=== PATIENT | female | born 1940 | race African-American/Black ===

== ENCOUNTER → 2018-02-28 12:13 | Outpatient (CLI) | payer MEDICARE, SELFPAY ==
--- NOTE | 2018-02-28 12:16 | XR_ITS ---
XR ankle wt bearing RT min 3V HISTORY: ITS.REASON: pain ORDERING PHYSICIAN: Vesna Echols DPM PATIENT AGE: 77 years Comparison: 02/25/2012 FINDINGS: No fracture or dislocation. No lytic or blastic change. There is normal mineralization.. The joint spaces are well-preserved. No significant degenerative/arthritic changes. No erosive changes evident. IMPRESSION: Negative ankle, no acute finding
--- NOTE | 2018-02-28 12:16 | XR_ITS ---
XR foot wt bearing LT 3V HISTORY: ITS.REASON: pain ORDERING PHYSICIAN: Vesna Echols DPM PATIENT AGE: 77 years COMPARISON: 02/25/2012 FINDINGS: There is moderate pes planus. Bony hypertrophic changes are present posteriorly in the mid foot. Osteoarthritic changes with subarticular cystic change is present at the navicular cuneiform joint with bony hypertrophic changes posteriorly. Osteoarthritic changes are also present at the second, third, fourth and fifth metatarsal tarsal joints. The pes planus and osteoarthritic changes have worsened compared to the previous exam. No fracture or dislocation. 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
--- NOTE | 2018-02-28 12:16 | XR_ITS ---
XR ankle wt bearing LT min 3V HISTORY: ITS.REASON: pain ORDERING PHYSICIAN: Vesna Echols DPM PATIENT AGE: 77 years Comparison: None FINDINGS: No fracture or dislocation. No lytic or blastic change. There is normal mineralization.. The joint spaces are well-preserved. No significant degenerative/arthritic changes. No erosive changes evident. IMPRESSION: Negative ankle, no acute finding
--- NOTE | 2018-02-28 12:16 | XR_ITS ---
XR foot wt bearing RT 3V HISTORY: ITS.REASON: pain ORDERING PHYSICIAN: Vesna Echols DPM PATIENT AGE: 77 years COMPARISON: 08/01/2015 FINDINGS: There is severe hallux valgus with first metatarsophalangeal angle of 51 degrees similar to the previous exam. There is 1 cm lateral displacement of the proximal phalanx of the great toe also similar when compared to the previous exam. There are osteoarthritic changes of the first MTP joint Pes planus is present as well not significant change. No fracture or dislocation. No lytic or blastic change. There is a defect present at the distal aspect of the fifth metatarsal laterally nonspecific and unchanged. Osteoarthritic changes are present at the talocuboid joint. IMPRESSION: Severe hallux valgus with lateral subluxation of the proximal phalanx of the great toe along with pes planus overall not significant changed
== END ==
PROVIDERS: Visit Provider Podiatrist
DX: M19.071 Primary osteoarthritis, right ankle and foot (principal); M19.072 Primary osteoarthritis, left ankle and foot; M79.671 Pain in right foot; M79.672 Pain in left foot
CPT/HCPCS: 73610; 73630

== ENCOUNTER → 2018-04-22 12:53 | Outpatient (POV) | payer MEDICARE, SELFPAY | PROVIDERS: Family Provider Family Medicine; PCP Family Medicine; Visit Provider Podiatrist | DX: Z00.00 Encounter for general adult medical examination without abnormal findings (principal) ==

== ENCOUNTER → 2018-06-28 10:41 | Outpatient (CLI) | payer MEDICARE, SELFPAY ==
--- NOTE | 2018-06-28 10:43 | MM_ITS ---
MM Dig screening mamm BI w/CAD CAD Screening COMPARISON: Digital mammograms with CAD 05/14/2017 and 05/05/2016 INDICATION: There is no personal or family history of breast cancer. TECHNIQUE: Standard CC and MLO images were obtained. R2 CAD reviewed. FINDINGS: Prominent diffuse heterogenic fibroglandular densities are seen throughout both breast lessening the sensitivity of mammography. There is a biopsy clip left breast, biopsy was benign. Diffuse scattered microcalcifications and macrocalcifications are seen throughout both breast as noted previously. There is no suspicious lesion and there are no suspicious microcalcifications. There are small nodes seen in both axilla. IMPRESSION: Stable dense parenchymal pattern with no suspicious lesion seen BI-RADS Category: 2 Benign Finding(s) RECOMMENDED FOLLOW-UP: 1YR - 1 YEAR FOLLOW-UP (A letter has been sent to the patient regarding results of the study.)
== END ==
PROVIDERS: Family Provider Family Medicine; PCP Family Medicine; Visit Provider Family Medicine
DX: Z12.31 Encounter for screening mammogram for malignant neoplasm of breast (principal)
CPT/HCPCS: 77067

== ENCOUNTER → 2019-08-17 12:41 | Outpatient (CLI) | payer MEDICARE, SELFPAY ==
--- NOTE | 2019-08-17 12:45 | MM_ITS ---
PROCEDURE: MM DIG SCREENING MAMM BI W/CAD CLINICAL INDICATION: VISIT FOR SCREENING MAMMOGRAM There is no personal or family history of breast cancer. There has been a previous biopsy left breast for benign disease. COMPARISON: [facility] DIG MAMM-SCREEN ROBBIE from 05/05/2016 [facility] DIG MAMM-SCREEN ROBBIE W/CAD from 05/14/2017 [facility] MM Dig screening mamm BI w/CAD from 06/28/2018 TECHNIQUE: Standard CC and MLO images were obtained. R2 CAD reviewed. FINDINGS: Diffuse heterogenic fibroglandular densities are seen throughout both breast. Multiple benign-appearing micro and macrocalcifications are again noted. There is a mole marker left breast. There is a focal collection of microcalcifications upper-outer quadrant left breast some of which were seen previously at this location with there has been a definite increase in number of the calcifications some of which appear to be indeterminate in nature. Recommend the patient return for spot compression magnification views and ultrasound for additional evaluation. IMPRESSION: Diffuse heterogenic breast density with slightly suspicious somewhat indeterminate microcalcifications left breast BI-RAD Category: 0 Need Additional Imaging Evaluation FOLLOW-UP: IMM Immediate Follow-up Recommended (A letter has been sent to the patient regarding results of the study.) Dictated by: Dr. Jabari Alvarez MD 08/20/2019 16:[address] Jabari Alvarez MD in [place] 08/20/2019 16:21
== END ==
PROVIDERS: PCP Family Medicine; Visit Provider Family Medicine
DX: Z12.31 Encounter for screening mammogram for malignant neoplasm of breast (principal)
CPT/HCPCS: 77067

== ENCOUNTER → 2019-09-14 12:44 | Outpatient (CLI) | payer MEDICARE, SELFPAY ==
--- NOTE | 2019-09-14 12:48 | MM_ITS ---
PROCEDURE: MM DIG MAMM DX UNILAT LT CAD CLINICAL INDICATION: ABNORMAL MAMM Indeterminate microcalcifications COMPARISON: [facility] DIG MAMM-SCREEN ROBBIE W/CAD from 05/14/2017 [facility] MM Dig screening mamm BI w/CAD from 06/28/2018 MM DIG SCREENING MAMM BI W/CAD from 08/17/2019 TECHNIQUE: Spot-compression MLO and CC views were obtained along with a 90 degree lateral view FINDINGS: The cluster of microcalcifications upper outer quadrant are better seen on the additional views but have a somewhat amorphous indeterminate appearance. There are not definitely seen on the previous mammogram June 2018. There is no soft tissue mass or architectural distortion associated with the calcifications. There is a biopsy clip somewhat near the microcalcifications. However since the microcalcifications were not present on the previous exam in June 2018 and I believe biopsy is indicated. IMPRESSION: Indeterminate microcalcifications upper-outer quadrant BI-RAD Category: 4 Suspicious Abnormality - Biopsy Considered FOLLOW-UP: BIO Biopsy Recommended (A letter has been sent to the patient regarding results of the study.) Dictated by: Dr. Jabari Alvarez MD 10/02/2019 14:[address] Jabari Alvarez MD in [place] 10/02/2019 14:23
== END ==
PROVIDERS: PCP Family Medicine; Visit Provider Family Medicine
DX: R92.8 Other abnormal and inconclusive findings on diagnostic imaging of breast (principal)
CPT/HCPCS: 77065

== ENCOUNTER → 2019-10-26 09:26 | Outpatient (CLI) | payer MEDICARE, SELFPAY | PROVIDERS: PCP Family Medicine; Visit Provider Family Medicine | DX: R92.8 Other abnormal and inconclusive findings on diagnostic imaging of breast (principal) ==

== ENCOUNTER → 2019-10-31 10:21 | Outpatient (CLI) | payer MEDICARE, SELFPAY ==
--- NOTE | 2019-10-31 10:27 | MM_ITS ---
PROCEDURE: MM STEREOTACTIC LOC LT CLINICAL INDICATION: LT BREAST NODULE Abnormal mammogram, left breast calcifications Informed consent was obtained prior to the procedure. TECHNIQUE: The patient was given 0.5 the mg of Xanax, Lortab 5 mg, and analgesia and minor sedation. The patient was placed on the stereotactic table and the abnormality was localized in the most appropriate projection. The breast was prepped in the routine manner, with sterile prep and the overlying skin anesthetized. A 3 to 4 mm skin incision was performed and the 9 gauge sorus vacuum-assisted core biopsy needle was advanced to the region of the calcification. Pre- and post fire images were obtained. After adequate positioning relative to the calcifications was ensured, multiple biopsies were obtained in the region of the calcifications specifically. The core biopsies obtained were sent for specimen mammography. After the calcifications were indeed identified on the specimen mammogram, the procedure was terminated. The patient tolerated the procedure well without complications. A tiny titanium nonferromagnetic MicroMark was positioned through the mammotome needle into the biopsy site. Pathology: Benign breast with stromal fibrosis and fibromatous. Microcalcifications present within fibrosis and fibromatous stroma. Negative for carcinoma or atypia IMPRESSION: 1. Successful stereotactic vacuum-assisted core biopsy of the breast calcifications. 2. Successful placement of a titanium metal MicroMark. 3. Pathology shows benign findings.. 4. No noted complications. SPECIMEN RADIOGRAPH: The mammographically evident calcifications from the prior study are currently evident within the Hansa dish and within the specimens obtained during mammotome procedure. This is considered an adequate specimen and the procedure was terminated. IMPRESSION: Successful removal of described breast calcifications. BREAST MAMMOGRAM: Compared to the prior study, the previously noted calcification have been removed. A small MicroMark clip was inserted into the region of the calcifications. There is evidence of soft tissue changes in the region of the biopsy was soft tissue gas and edema. 5. Adequate placement of the MicroMark clip postbiopsy. 6. Postbiopsy changes within the breast. Dictated by: Tk Snyder MD 11/02/2019 18:44 Electronically signed by Tk Snyder MD in [place] 11/02/2019 18:44
== END ==
PROVIDERS: PCP Family Medicine; Visit Provider Family Medicine
DX: R92.8 Other abnormal and inconclusive findings on diagnostic imaging of breast (principal)
CPT/HCPCS: 19081; 76098; 77065; 88305

== ENCOUNTER → 2021-02-06 13:19 | Outpatient (CLI) | payer MEDICARE, SELFPAY ==
--- NOTE | 2021-02-06 13:23 | XR_ITS ---
PROCEDURE: XR LUMBAR SPINE MIN 4V CLINICAL INDICATION: LOW BACK PAIN COMPARISON: No exams were available for comparison FINDINGS: Multilevel degenerative changes of the lumbar spine with endplate sclerosis, loss of disc height, vacuum disc phenomenon and facet joint arthropathy is noted. Levoscoliosis of the lumbar spine is noted. No acute fractures or traumatic subluxation. Bone density is normal. Paravertebral soft tissues IMPRESSION: Are unremarkable. Degenerative changes of the lumbar spine. No acute fractures or listhesis. Dictated by: Meghan White 02/06/2021 15:31 Meghan White in [place] 02/06/2021 15:31
== END ==
PROVIDERS: PCP Family Medicine; Visit Provider Family Medicine
DX: M54.5 Low back pain (principal)
CPT/HCPCS: 72110

== ENCOUNTER 2021-05-16 14:00 | Outpatient (RCR) | payer MEDICARE, SELFPAY ==
--- NOTE | 2021-02-11 13:30 | HMH.PTOPEV ---
PT Outpatient Evaluation Rehab PT Outpatient Evaluation Start: 02/11/21 13:22 Freq: Status: Active Protocol: Document 02/11/21 13:22 KRUNAL (Rec: 02/11/21 13:30 KRUNAL [id number]) Electronically Signed By Caleb Blood, PT 02/11/21 13:22 Outpatient Therapy Subjective History Subjective History Pt reports h/o chronic LBP with exacerbation over the last month. Pt reports insidious onset ~30days, but reports the increase in LBP correlates to changes in prescripition arthritis medication. Pt reports midline LBP which radiates into bilateral paraspinal mm, no radicular s/s reported. Recent Xrays of Lumbar spine reveal degenerative changes. Chief Complaint Pain,Stiff,Weakness Symptom Type Ache,Dull Symptoms Relieved By Rest/Positioning,Heat Symptoms Aggravated By Standing,Physical Activity, Twisting,Walking,Lifting Prior Functional Limitations Lifting,Housework,Standing, Walking Current Functional Limitations Lifting,Housework,Standing, Walking Symptom Description Constant but Variable Level of pain today (0-10) 5 Pain scale - at its best (0-10) 4 Pain scale - at its worst (0-10) 7 Lumbopelvic Eval Posture Thoracic Spine Posture Standing Position Neutral Lumbar Spine Posture Standing Position Neutral Assistive device Assistive Devices None / NA Gait Observation General Gait Pattern Observation Antalgic Gait Palapation tenderness bilateral lumbar spinal tenderness Yes: 3/4 paraspinal tenderness Yes: 3/4 Lumbar/Sacral Palpation Findings Tenderness,Muscle Guarding Lumbar/Sacral Palpation Overall Comment 3/4 Accessory Movement L-spine Vertebrae Accessory Movements Central P/A [place] that Elicit Symptoms L2 bilateral L3 bilateral L4 bilateral L5 bilateral S1 bilateral Range of Motion Lumbar Spine Active Flexion Range of 0-40 Motion (degrees) Lumbar Spine Active Extension Range of 0-5 Motion (degrees) Left Lumbar Spine Lateral Flexion Active 0-20 Range of Motion (degrees) Right Lumbar Spine Lateral Flexion 0-20 Active Range of Motion (degrees) Lumbar Spine ROM Limitations Pain Manual Muscle Test Bilateral Knee Extension Strength Grade 4 Go
--- NOTE | 2021-03-11 15:33 | HMH.RHREAS ---
Rehab Reassessment Rehab OP Re-assessment Start: 03/11/21 14:21 Freq: Status: Active Protocol: Document 03/11/21 14:21 KRUNAL (Rec: 03/11/21 15:33 KRUNAL [id number]) Electronically Signed By Caleb Blood, PT 03/11/21 14:21 Rehab Re-assessment Subjective Subjective Pt reports 5-7/10 LBP on VAS, 'I don't know what's going on, but the last couple weeks have been bad. I think this ( PT) helps sometimes, but other times I'm not sure'. Objective Objective Notes AROM: L-SPINE FLX 0-52, EXT 0- 8, L SB 0-25, R SB 0-18 W/PAIN MMT: B HIP FLX 4-/5 W/PAIN REPRODUCTION IN LUMBAR REGION, B KNEE FLX 4/5, B KNEE EXT 4- 4+/5, B DF 4/5 TTP: R PIRI 2/4, R LUMBAR PARA 2-3/4, L LUMBAR PARA 2/4, MIDLINE L2-4 S.P.'S 11/28 Assessment Progress Assessment Slower Than Expected Assessment Notes SLIGHT IMPROVEMENTS IN ROM AND STRENGTH Patient goals met STG'S 02/01 LTG'S 11/06 Goals Not Met STG'S 12/02, LTG'S 05/06 Plan Plan Pt to cont. w/skilled P.T. to make further improvements in AROM, strength, and TTP to allow for optimal function Frequency of Therapy 1-2x/wk Duration of therapy 4-6wks Time and Billing Re-Eval Time 15 Re-Eval Billing Units 0 PHYSICIAN CERTIFICATION: I certify the specified therapy services for Ana Rosa Ordoñez are required, authorized, and reviewed every 30 days.
--- NOTE | 2021-04-15 15:12 | HMH.RHREAS ---
Rehab Reassessment Rehab OP Re-assessment Start: 03/11/21 14:21 Freq: Status: Active Protocol: Document 04/15/21 15:04 [email or web address] (Rec: 04/15/21 15:11 [email or web address] [id number]) Electronically Signed By Caleb Blood, PT 04/15/21 15:04 Rehab Re-assessment Subjective Subjective Pt reports 6/10 LBP on VAS w/ activity, however, reports improvements in overall function feeling 50% better since I eval Objective Objective Notes AROM: L-SPINE FLX 0-60, EXT 0- 15, L SB 0-25, R SB 0-25 MMT: B HIP FLX 4/5, B KNEE FLX 4+/5, B KNEE EXT 4+/5, B DF 4 /5 TTP: R PIRI 2/4, R LUMBAR PARA 2/4, L LUMBAR PARA 2/4, MIDLINE L2-4 S.P.'S 11/28 Assessment Progress Assessment Progressing as Expected Assessment Notes improved strength, AROM, and TTP Patient goals met STG'S 04/03 LTG'S 01/04 Goals Not Met stg's 10/04, ltg's 03/06 Plan Plan Pt to cont. w/skilled P.T. to make further improvements in AROM, strength, and TTP to allow for optimal function Frequency of Therapy 2-3x/wk Duration of therapy 2-4wks Time and Billing Re-Eval Time 15 Re-Eval Billing Units 0 PHYSICIAN CERTIFICATION: I certify the specified therapy services for Ana Rosa Ordoñez are required, authorized, and reviewed every 30 days.
== END 2021-05-16 14:59 | disposition home or self-care (01) ==
LOC: PT 14:00
PROVIDERS: PCP Family Medicine; Visit Provider Family Medicine
DX: M54.5 Low back pain (principal)
CPT/HCPCS: 97010; 97014; 97110; 97140; 97163; 97164; G0283

== ENCOUNTER → 2022-07-13 15:10 | Outpatient (CLI) | payer MEDICARE, SELFPAY ==
--- NOTE | 2022-07-13 15:25 | XR_ITS ---
FINAL REPORT CLINICAL HISTORY: DECREASED ROM OF NECK and neck pain since last wednesday. no known injury. FINDINGS: CERVICAL SPINE Five views were obtained. There is no acute fracture. There is mild anterolisthesis of C3 on C4 and C4 on C5. There are mild and moderate degenerative changes. There are disc osteophyte complexes at C5-6 and C6-7. There is mild right neural foraminal narrowing at C3-4. There is no soft tissue abnormality. IMPRESSION: Degenerative changes as above with no acute bony abnormality. Reviewed, Interpreted and Dictated by Gordy Jones III, MD Transcribed by Alyson Morales Authenticated and [facility]
== END ==
PROVIDERS: PCP Nurse Practitioner Family; Visit Provider Nurse Practitioner Family
DX: M54.2 Cervicalgia (principal); R20.0 Anesthesia of skin; R20.2 Paresthesia of skin; R29.898 Other symptoms and signs involving the musculoskeletal system
CPT/HCPCS: 72050

== ENCOUNTER → 2022-08-11 12:41 | Outpatient (CLI) | payer MEDICARE, SELFPAY ==
--- NOTE | 2022-08-11 12:44 | MM_ITS ---
PROCEDURE INFORMATION: Exam: MG Bilateral Screening 3D Mammography Exam date and time: 08/11/2022 12:52 PM Age: 81 years old Clinical indication: Screening examination. No family history of breast cancer. History of benign left stereotactic biopsy. TECHNIQUE: Imaging protocol: Bilateral Screening tomosynthesis and 2D mammography including computer-aided detection (CAD) when performed. COMPARISON: 1. MG MM CLIP PLACEMENT LT 10/31/2019 12:43 PM 2. MG Digital Spot Compression: BreastBiopsy 10/31/2019 12:03 PM 3. MG MM STEREOTACTIC LOC LT 10/31/2019 11:32 AM MG MM DIG SCREENING MAMM BI W/CAD 08/17/2019 1:12 PM FINDINGS: MAMMOGRAPHY: Breast composition: The breasts are heterogeneously dense, which may obscure small masses. Mass: No suspicious mass. Architectural distortion: None. Calcifications: Multiple extensive bilateral calcifications, with no significant change. No suspicious calcifications. Asymmetric density: None. Skin thickening: None. Axillary adenopathy: None. Other: Left biopsy clip. IMPRESSION: No mammographic evidence of malignancy. Annual screening is recommended unless otherwise clinically indicated. ASSESSMENT: BI-RADS Category 2: Benign
== END ==
PROVIDERS: PCP Nurse Practitioner Family; Visit Provider Nurse Practitioner Family
DX: Z12.31 Encounter for screening mammogram for malignant neoplasm of breast (principal)
CPT/HCPCS: 77063; 77067

== ENCOUNTER → 2023-08-13 14:00 | Outpatient (CLI) | payer MEDICARE, SELFPAY ==
--- NOTE | 2023-08-13 14:03 | MM_ITS ---
PROCEDURE INFORMATION: Exam: MG Bilateral Screening 3D Mammography Exam date and time: 08/13/2023 2:15 PM Age: 82 years old Clinical indication: Screening examination TECHNIQUE: Imaging protocol: Bilateral Screening tomosynthesis and 2D mammography including computer-aided detection (CAD) when performed. COMPARISON: 1. MG MM DIG SCREENING MAMM BI W/CAD 08/11/2022 12:52 PM 2. MG MM CLIP PLACEMENT LT 10/31/2019 12:43 PM FINDINGS: MAMMOGRAPHY: Breast composition: The breasts are heterogeneously dense, which may obscure small masses. Mass: None. Architectural distortion: None. Calcifications: No suspicious calcifications. Asymmetric density: None. Skin thickening: None. Axillary adenopathy: None. IMPRESSION: No mammographic evidence of malignancy. Annual screening is recommended unless otherwise clinically indicated. ASSESSMENT: BI-RADS Category 1: Negative
== END ==
PROVIDERS: PCP Nurse Practitioner Family; Visit Provider Nurse Practitioner
DX: Z12.31 Encounter for screening mammogram for malignant neoplasm of breast (principal)
CPT/HCPCS: 77063; 77067

== ENCOUNTER 2024-07-11 13:39 | Outpatient (CLI) | payer MEDICARE, SELFPAY ==
--- NOTE | 2024-07-11 13:44 | CT_ITS ---
FINAL REPORT CLINICAL HISTORY: CHRONIC SINUSITIS COMPARISON: None FINDINGS: CT SINUSES: The paranasal sinuses are well aerated. There is no fracture. There are no air-fluid levels. The ostiomeatal units are patent. No septal deviation is identified. The mastoid air cells are unremarkable in appearance. IMPRESSION: No evidence of sinusitis. Reviewed, Interpreted and Dictated by Jose Thacker MD Transcribed by Karine Mg Authenticated and [facility]
== END 2024-07-11 23:59 | disposition home or self-care (01) ==
LOC: RAD 13:40
PROVIDERS: PCP Nurse Practitioner; Visit Provider Allergy & Immunology
DX: J32.9 Chronic sinusitis, unspecified (principal)
CPT/HCPCS: 70486

== ENCOUNTER 2024-08-25 13:36 | Outpatient (CLI) | payer MEDICARE, SELFPAY ==
--- NOTE | 2024-08-25 13:42 | MM_ITS ---
PROCEDURE INFORMATION: Exam: MG Bilateral Screening 3D Mammography Exam date and time: 08/25/2024 1:27 PM Age: 83 years old Clinical indication: Screening. No family history of breast cancer. TECHNIQUE: Imaging protocol: Bilateral Screening tomosynthesis and 2D mammography including computer-aided detection (CAD) when performed. COMPARISON: 1. MG MM DIG SCREENING MAMM BI W/CAD 08/13/2023 2:15 PM 2. MG MM DIG SCREENING MAMM BI W/CAD 08/11/2022 12:52 PM 3. MG MM CLIP PLACEMENT LT 10/31/2019 12:43 PM 4. MG MM SURGICAL SPECIMEN LT 10/31/2019 12:25 PM FINDINGS: MAMMOGRAPHY: Breast composition: The breasts are heterogeneously dense, which may obscure small masses. Mass: None. Architectural distortion: None. Calcifications: No suspicious calcifications. Asymmetric density: None. Skin thickening: None. Axillary adenopathy: None. IMPRESSION: No mammographic evidence of malignancy. Annual screening is recommended unless otherwise clinically indicated. ASSESSMENT: BI-RADS Category 1: Negative.
== END 2024-08-25 23:59 | disposition home or self-care (01) ==
LOC: RAD 13:36
PROVIDERS: PCP Nurse Practitioner; Visit Provider Nurse Practitioner
DX: Z12.31 Encounter for screening mammogram for malignant neoplasm of breast (principal)
CPT/HCPCS: 77063; 77067

== ENCOUNTER 2025-06-13 14:40 | Outpatient (CLI) | payer MEDICARE, SELFPAY ==
--- NOTE | 2025-06-13 14:46 | XR_ITS ---
FINAL REPORT CLINICAL HISTORY: LBP MULTIPLE SITES COMPARISON: 02/06/2021 FINDINGS: LUMBOSACRAL SPINE SERIES Five views of the lumbosacral spine were obtained. There is no fracture present. There is severe diffuse degenerative disc disease with vacuum disc at multiple levels. Findings have progressed since the previous exam. There is moderate levoscoliosis. Moderate facet arthropathy is noted. IMPRESSION: Progressive severe degenerative changes. Reviewed, Interpreted and Dictated by Olinda Campbell MD Transcribed by Maira Espinal Authenticated and [facility]
== END 2025-06-13 23:59 | disposition home or self-care (01) ==
LOC: RAD 14:42
PROVIDERS: PCP Nurse Practitioner; Visit Provider Family Medicine
DX: M47.817 Spondylosis without myelopathy or radiculopathy, lumbosacral region (principal)
CPT/HCPCS: 72110

== ENCOUNTER 2025-09-25 12:42 | Outpatient (CLI) | payer MEDICARE, SELFPAY ==
--- NOTE | 2025-09-25 12:45 | MM_ITS ---
PROCEDURE INFORMATION: Exam: MG Bilateral Screening 3D Mammography Exam date and time: 09/25/2025 1:10 PM Age: 84 years old Clinical indication: Screening examination TECHNIQUE: Imaging protocol: Bilateral Screening tomosynthesis and 2D mammography including computer-aided detection (CAD) when performed. COMPARISON: 1. MG MM DIG SCREENING MAMM BI W/CAD 08/25/2024 1:27 PM 2. MG MM DIG SCREENING MAMM BI W/CAD 08/13/2023 2:15 PM FINDINGS: MAMMOGRAPHY: Breast composition: There are scattered areas of fibroglandular density. Mass: None. Architectural distortion: None. Calcifications: No suspicious calcifications. Asymmetric density: None. Skin thickening: None. Axillary adenopathy: None. IMPRESSION: No mammographic evidence of malignancy. Annual screening is recommended unless otherwise clinically indicated. ASSESSMENT: BI-RADS Category 1: Negative.
== END 2025-09-25 23:59 | disposition home or self-care (01) ==
LOC: RAD 12:42
PROVIDERS: PCP Nurse Practitioner; Visit Provider Nurse Practitioner
DX: Z12.31 Encounter for screening mammogram for malignant neoplasm of breast (principal); R92.323 Mammographic fibroglandular density, bilateral breasts
CPT/HCPCS: 77063; 77067